=== PATIENT | male | born 1985 | race Two or more races ===

== ENCOUNTER 2024-07-08 13:15 | Emergency (ER) | payer MEDICAID, SELFPAY ==
[2024-07-08 13:19] VITALS: BMI 32.5
[2024-07-08 13:27] VITALS: BP 189/132; BP 194/127; PULSE 89; RESP 18; TEMP 36.6; O2SAT 98
--- NOTE | 2024-07-08 13:28 | XR_ITS ---
Examination: AP chest single view Technique one AP portable upright chest single view Exam date and time: July 08, 2024 1342 hours INDICATIONS: Elevated blood pressure and headaches today. FINDINGS: Minimal prominence left ventricle No pneumonia or pulmonary edema Mild osteopenia IMPRESSION: No pneumonia or pulmonary edema
--- NOTE | 2024-07-08 13:28 | XR_ITS ---
Examination: CT brain head without contrast. 2-D sagittal coronal reconstructions Date and time of exam:July 08, 2024 at 1453 hours INDICATIONS: Onset severe head pain beginning this morning CTDI: vol (mGy):49.7 DLP: (mGycm):973 Technique: Multiple CT axial sections of the brain have been obtained, 5 mm slice thickness. Contrast has not been administered. 2-D sagittal, coronal reconstructions have been obtained Low dose protocols were performed. One or more of the following dose reduction techniques were used; automated exposure control, adjustment of the mA and/or KV according to patient size, use of iterative reconstruction technique. Findings: No significant ventricular enlargement. Intra-axial or extra-axial hemorrhage density is not seen. No mass effect or midline shift Basal cisterns are not remarkable. Fourth ventricle is midline. Cranial vault intact. Impression: Negative for acute hemorrhage, mass effect or midline shift Old appearing fracture medial wall left orbit but clinical correlation advised If new onset severe headaches persist, consider brain MRI MRA without contrast follow-up
--- NOTE | 2024-07-08 13:29 | EDNOTE_ITS ---
ED Headache RME/HPI General Chief Complaint: Headache Stated Complaint: MO x 4 hours, weakness, nausea Time Seen by Provider: 07/08/24 13:28 Arrival date/time: 07/08/24 13:15 RME / HPI RME / HPI Narrative: 39-year-old male patient with significant history of elevated blood pressure, noncompliance with medication, came in for evaluation regarding sudden onset of headache. Onset of symptoms about 4 hours prior to ER visit as left-sided headache, described as dull ache, severity moderate. Associated with bilateral upper extremity weakness. Also complained of blurry vision. Patient denies any vomiting, slurring of speech, chest pain or abdominal pain. Patient is ambulatory. Related Data Previous Rx's ?Medication ?Instructions ?Recorded amlodipine 10 mg tablet (Norvasc) 10 mg PO QDAY #30 ta bs 07/08/24 Allergies Allergy/AdvReac Type Severity Reaction Status Date / Time No Known Allergies Allergy Verified 07/08/24 13:18 Review of Systems Review of Systems Narrative Review of Systems: Review of system reviewed and within normal limits except mentioned in HPI ED Exam Narrative Physical exam: VITAL SIGNS: Reviewed. GENERAL APPEARANCE: Alert and interactive, follows commands, no acute distress, HEAD AND FACE: Non-traumatic. ENT: PERRL, pink conjunctivitis, eyelid no trauma, Mucous membrane moist. NECK: Supple, nontender, no nuchal rigidity. CHEST: No tenderness, no crepitus, no paradoxical movement, no retractions. LUNGS: Clear, well ventilated, symmetric, no rales, no wheezing, no ronchi, no stridor, good breath sounds bilaterally. HEART: Regular rate, regular rhythm, no murmur, no gallops. ABDOMEN: Soft, positive bowel sounds, nondistended, no guarding, nontender, no rebound, no masses, RECTAL: Deferred. GENITAL: Deferred. NEUROLOGICAL: Gross motor function intact sensory function intact, Appropriate for age. MUSCULOSKELETAL: low back nontender, full range of motion. EXTREMITIES: Nontender, full range of motion. SKIN: Color pink, dry, no rash, no lacerations, no abrasions, no contusions. LYMPHATICS: Deferred. Course Quality Measures none Orders Category Date Time Status EKG (ED ONLY) *Do not use* NOW Care 07/08/24 16:[address] head/brain wo con Stat Exams 07/08/24 13:28 Completed EKG (ED Only) Stat Exams 07/08/24 16:28 Ordered XR chest 1V Stat Exams 07/08/24 13:28 Completed B-Type Natriuretic Peptide Stat Lab 07/08/24 14:05 Completed CBC Stat Lab 07/08/24 14:05 Completed Comprehensive Metabolic Panel Stat Lab 07/08/24 14:05 Completed Drug Screen,Urine Stat Lab 07/08/24 13:37 Completed Partial Thromboplastin Time Stat Lab 07/08/24 14:05 Completed Troponin I Stat Lab 07/08/24 14:05 Completed Urinalysis, C/S if Indicated Stat Lab 07/08/24 13:37 Completed Acetaminophen Tab [Tylenol ES Tab] Med 07/08/24 13:28 Discontinued 1,000 mg PO X1 ONE Labetalol IV [Trandate IV] Med 07/08/24 13:28 Discontinued 20 mg IVP X1 ONE Vital Signs Vital signs: Vital Signs Temperature 97.8 F 07/08/24 13:27 Pulse Rate 89 07/08/24 13:27 Respiratory Rate 18 07/08/24 13:27 Blood Pressure 194/127 H 07/08/24 13:27 Pulse Oximetry (%) 98 07/08/24 13:27 Oxygen Delivery Method Room Air 07/08/24 13:27 Headache MDM Narrative MDM Narrative:: 39-year-old male patient with significant history of elevated blood pressure, noncompliance with medication, came in for evaluation regarding sudden onset of headache. Onset of symptoms about 4 hours prior to ER visit as left-sided headache, described as dull ache, severity moderate. Associated with bilateral upper extremity weakness. Also complained of blurry vision. Patient denies any vomiting, slurring of speech, chest pain or abdominal pain. Patient is ambulatory. Patient's workup today all came back normal. CT scan of the head came back unremarkable. The rest of the labs unremarkable. Patient was given labetalol IV, and latest blood pressure was noted to be 160s over 104 and headache is totally gone. Was advised to closely follow-up with PCP in 1 to 2 days for blood pressure management as outpatient. Patient will be sent home on Norvasc 10 mg daily. Patient appears nontoxic and hemodynamically stable. Patient discharged home and instructed to follow-up with primary care provider in 24 to 48 hours. Instructed to return to the emergency department immediately if worsening of symptoms Patient data External records reviewed:: None Clinical information provided by:: patient Social determinants that could affect healthcare access:: none Patient has the following chronic illnesses:: Hypertension not on medication How is presenting disease/condition affected by chronic disease/condition?: exacerbated by Evaluation data The following diagnostics were reviewed and interpreted by me:: lab results, rad iology exam(s) and EKG tracing(s) Lab and/or radiology exams considered but not ordered:: None Interpretation Summary: See results in MDM EKG shows sinus rhythm, ventricular rate of 80 bpm, OR interval 151 MS, no ST segment elevation depression noted. Medications / Prescriptions Medications or Prescriptions considered but not ordered:: None Medication administrations:: Medication Administration History Discontinued Medications Acetaminophen (Acetaminophen 500 Mg Tablet) 1,000 mg PO X1 ONE Stop: 07/08/24 13:29 Last Admin: 07/08/24 14:27 Dose: 1,000 mg Documented By: TIMI Labetalol HCl (Labetalol Inj 5 Mg/Ml Vial 20 Ml) 20 mg IVP X1 ONE Stop: 07/08/24 13:29 Last Admin: 07/08/24 14:35 Dose: 20 mg Documented By: TM Tylenol and labetalol Consultations Consultation(s) initiated? (list below): No Diagnosis Differential diagnosis headache: migraine and headache Most likely diagnosis given after review of the tests above:: Hypertension, noncompliant with medication, headache Admission Indicated Admission indicated?: not indicated Admission Request Was there a request for admission?: No Disposition Plan Disposition Plan: Discharge Discharge Attestation Discharge Attestation: The patient was given an opportunity to ask questions and understood the discharge instructions. Discharge instructions specifically effects, indications for sooner follow up or return to the emergency department, and the expected course of current diagnosis. Patient condition: Stable Discharge Plan Plan Patient Disposition: HOME (Self Care) Disposition Comment: stable Prescriptions/Referrals Prescriptions/Med Rec: New amlodipine [Norvasc] 10 mg tablet 10 mg PO QDAY Qty: 30 0RF Referrals: No Primary/Family,Physician [Primary Care Provider] - In 1 week Problem List Clinical Impression: Headache, HTN (hypertension) Patient/Caregiver Discharge Instructions Discharge Activity: activity as tolerated Education Materials: ED High Blood Pressure ... Additional Instructions: Thank you for the opportunity for serving you today. You are stable for discharged . You are advised to: Follow-up with your PCP in 1 to 2 days Return to ED for worsening of symptoms Increase oral fluids Take medication as prescribed Print Language: Kyrgyz Stand Alone Forms: [employer] Award Info., Patient Portal Info Letter
[2024-07-08 13:41] LABS: Collection Type, Urine Clean Catch; RBC,Urine 0 /hpf (0-3); Squamous Epithelial Cell,Urine 0 /hpf (0-5); WBC,Urine 0 /hpf (0-5)
[2024-07-08 13:57] LABS: Bilirubin,Urine Negative (Negative); Blood,Urine Negative (Negative); Clarity,Urine Clear (Clear/Hazy); Color,Urine Colorless (Lt Yel-Yel); Culture Indicated,Urine Not Indicated; Glucose, Urine Negative (Negative); Ketones,Urine Negative (Negative); Leukocyte Esterase,Urine Negative (Negative); Nitrite,Urine Negative (Negative); PH,Urine 6.5 (5.0-7.0); Protein,Urine Negative (Neg - Trace); Specific Gravity,Urine 1.006 (1.001-1.035); Urobilinogen,Urine Negative mg/dL (0.0-1.0)
[2024-07-08 14:01] LABS: Amphetamine/Methamp Scrn,U Negative (Negative); Barbiturate Screen,Urine Negative (Negative); Benzodiazepines Screen,Urine Negative (Negative); Benzoylecgonine Screen, Ur Negative (Negative); Fentanyl Screen,Urine Negative (Negative); Opiate Screen,Urine Negative (Negative); THC Screen,Urine Negative (Negative)
[2024-07-08 14:14] LABS: Basophils % (Auto) 0 % (0-2.5); Eosinophils # (Auto) 0.1 Thou/mm3 (0.0-0.5); Eosinophils % (Auto) 1 % (0-10); Hematocrit 45.5 % (41.0-53.0); Immature Granulocytes % (Auto) 0 % (0-0); Immature Granulocytes Auto 0.03 Thou/mm3 (0.00-0.00); Lymphocytes # (Auto) 1.7 Thou/mm3 (1.0-4.8); Lymphocytes % (Auto) 20 % (10-50); Mean Corpuscular HGB Conc 35.2 g/dl (31.0-37.0); Mean Corpuscular Hemoglobin 29.8 pg (25.0-35.0); Mean Corpuscular Volume 85 fL (80-100); Monocytes # (Auto) 0.5 Thou/mm3 (0.0-0.8); Monocytes % (Auto) 5 % (0-12); Neutrophils # (Auto) 6.5 Thou/mm3 (1.8-7.7); Neutrophils % (Auto) 74 % (37-80); Nucleated Red Blood Cell % 0 /100 WBC (0); Platelet Count 240 Thou/mm3 (140-440); RDW Standard Deviation 36.9 fL (35.1-43.9); Red Blood Count 5.37 Miln/mm3 (4.50-5.90); White Blood Count 8.9 Thou/mm3 (3.8-10.6)
[2024-07-08] MEDS: ACETAMINOPHEN 500 MG TABLET 1000 MG PO (14:27)
[2024-07-08 14:29] LABS: Partial Thromboplastin Time 25.9 Seconds (22.0-36.0)
[2024-07-08 14:33] LABS: B-Type Natriuretic Peptide < 20 pg/mL (0-100)
[2024-07-08 14:35] VITALS: BP 165/109; PULSE 97
[2024-07-08] MEDS: LABETALOL INJ 5 MG/ML VIAL 20 ML 20 MG IVP (14:35)
[2024-07-08 14:37] LABS: Alanine Aminotransferase 47 U/L (10-49); Albumin, Serum 4.6 gm/dL (3.5-5.0); Albumin/Globulin Ratio 1.7 (1.2-2.2); Alkaline Phosphatase 70 U/L (46-116); Anion Gap 11 (7-16); Aspartate Amino Transferase 26 U/L (0-34); BUN/Creatinine Ratio 10 Ratio (12-20); Bilirubin,Total 0.6 mg/dL (0.3-1.2); Blood Urea Nitrogen 8 mg/dL (9-23); Calcium 9.5 mg/dL (8.3-10.6); Calcium (Corrected) 9.5 mg/dL (8.5-10.1); Carbon Dioxide 24.8 mMol/L (20.0-31.0); Chloride 102 mMol/L (98-107); Creatinine (Component) 0.8 mg/dL (0.6-1.3); Estimated Creatinine Clearance 123.9 mL/min (>60); Globulin 2.7 gm/dL (2.3-3.5); Glucose 116 mg/dL (74-106); Osmolality,Calculated 274 (275-295); Potassium 3.9 mMol/L (3.4-5.1); Sodium 138 mMol/L (136-145); Total Protein 7.3 gm/dL (5.7-8.2); Troponin I 0.022 ng/mL (0.0-0.045); eGFR > 60 See Note
[2024-07-08 16:04] VITALS: BP 162/104; PULSE 92; RESP 14; TEMP 36.8; O2SAT 97
--- NOTE | 2024-07-08 16:28 | EKG_ITS ---
[facility] Test Date: 2024-07-08 Pat Name: MARITO WEST Department: Room: - Gender: Male [employer]: : 1985 Requested By: Reinier López Order Number: [id number] Reading MD: Reinier López Measurements Intervals Rembert Rate: 80 P: 38 PA: 151 QRS: -7 QRSD: 93 T: 90 QT: 374 QTc: 433 Interpretive Statements SINUS RHYTHM MODERATE T-WAVE ABNORMALITY, CONSIDER ANTEROLATERAL ISCHEMIA [-0.1+ mV T WAVE IN V3-V6] No previous ECG available for comparison /[id number]/[email or web address]/[id number]
[2024-07-08 17:42] VITALS: BP 168/115; PULSE 88; RESP 16; TEMP 37.1; O2SAT 99
== END 2024-07-08 17:44 | disposition home or self-care (01) ==
PROVIDERS: Nurse Practitioner Family; Emergency Provider Emergency Medicine
DX: I10 Essential (primary) hypertension (principal); R51.9 Headache, unspecified; R94.31 Abnormal electrocardiogram [ECG] [EKG]; Z91.148 Patient's other noncompliance with medication regimen for other reason
CPT/HCPCS: 36415; 70450; 71045; 80053; 80307; 81001; 83880; 84484; 85025; 85730; 93005; 96374; 99284; J3490; A9270; J1920